=== PATIENT | female | born 1955 | race African-American/Black ===

== ENCOUNTER 2017-02-02 21:10 | Emergency (ER) | payer MEDICAID ==
[~2017-02-02] VITALS: Ht 162.6 cm; Wt 77.0 kg
[2017-02-02 21:22] VITALS: BP 151/69
== END 2017-02-03 05:58 | disposition home or self-care (01) ==
LOC: ER 02-03 03:39
DX: H61.23 Impacted cerumen, bilateral (principal); I10 Essential (primary) hypertension
CPT/HCPCS: 99282